=== PATIENT | female | born 1985 | race Caucasian/White ===

== ENCOUNTER → 2017-07-28 | Emergency (ER) | payer OTHER ==
[~2017-07-28] VITALS: Ht 154.9 cm; Wt 44.5 kg
[~2017-07-28] MED LIST: ORTHO TRI-CYCL1 EAC1
== END | disposition home or self-care (01) ==
LOC: ER 20:14
DX: N39.0 Urinary tract infection, site not specified (principal); R10.2 Pelvic and perineal pain

== ENCOUNTER 2020-09-08 08:28 | Outpatient (CLI) | payer OTHER | END 2020-09-08 08:57 | disposition home or self-care (01) | LOC: MAMO-SONO 08:28 | PROVIDERS: ATTEND Obstetrics & Gynecology | DX: Z12.31 Encounter for screening mammogram for malignant neoplasm of breast (principal); N60.11 Diffuse cystic mastopathy of right breast; N60.12 Diffuse cystic mastopathy of left breast; Z80.3 Family history of malignant neoplasm of breast ==

== ENCOUNTER 2024-02-16 08:20 | Outpatient (CLI) | payer OTHER | END 2024-02-16 08:21 | disposition home or self-care (01) | LOC: PRENATAL 08:20 | PROVIDERS: ATTEND Obstetrics & Gynecology Maternal & Fetal Medicine | DX: O36.80X0 Pregnancy with inconclusive fetal viability, not applicable or unspecified (principal); O26.859 Spotting complicating pregnancy, unspecified trimester; O09.529 Supervision of elderly multigravida, unspecified trimester; Z3A.01 Less than 8 weeks gestation of pregnancy ==

== ENCOUNTER 2025-03-31 14:30 | Inpatient (IN) | payer OTHER ==
[~2025-03-31] VITALS: Ht 154.9 cm; Wt 4.1 kg
[2025-04-11] MEDS ORDERED: PRENATABS RX T1 EACH PO (11:28)
[2025-04-11 12:01] LABS: BASO % 0.5 % (0.1-1.2); EOS # 0.05 (0.04-0.54); EOS % 0.6 % (0.7-7.0); LYMPH # 1.36 (1.18-3.74); LYMPH % 17.4 % (19.3-53.1); MEAN PLATELET VOLUME 10.60 fl (9.4-12.4); MONO # 0.72 (0.24-0.82); MONO % 9.2 % (4.7-12.5); NEUT # 5.57 (1.56-6.13); NEUT % 71.3 % (34.0-71.1); RED CELL DISTRIBUTION WIDTH 13.4 % (11.6-14.4)
[2025-04-11 12:16] LABS: INR 0.94
[2025-04-11 12:37] LABS: ALT/SGPT 28.0 U/L (12-78); AST/SGOT 15.0 U/L (15-37); BILIRUBIN TOTAL 0.31 mg/dL (0.3-1.2); BUN CREA RATIO 17.0 (7.0-25.0); CREATININE SERUM 0.59 mg/dL (0.55-1.02); GFR 112.89; GLOBULINA 3.4 G/DL (2.4-3.5); GLUCOSE FASTING 93.0 mg/dL (65-100); OSMOLALITY SERUM 280.0 MOSM/KG (275-295)
[2025-04-13 06:34] VITALS: BP 105/68
[2025-04-13] MEDS ORDERED: CLINDAMYCIN PHOSPHATE 150 MG/ML (900mg) ONE (08:07)
[2025-04-13] MEDS ORDERED: OXYTOCIN 10 UNITS/ML VIAL ONE ×2 (08:07→14:42)
[2025-04-13] MEDS ORDERED: GENTAMICIN SULFATE 40 MG/ML VIAL ONE (08:08)
[2025-04-13] MEDS ORDERED: CITRIC ACID/SODIUM CITRATE 30 ML BLIST.PACK PO ONE (08:08)
[2025-04-13] MEDS ORDERED: ERYTHROMYCIN BASE OPHT 1GM EACH TUBE OP ONE (08:12)
[2025-04-13] MEDS ORDERED: METHYLERGONOVINE MALEATE 0.2 MG/ML AMPUL ONE ×2 (09:59→15:13)
[2025-04-13] MEDS ORDERED: OXYTOCIN 40 UNITS in RINGERS SOLUTION,LACTATED 1,000 ML IV SCH (11:45)
[2025-04-13] MEDS ORDERED: RINGERS SOLUTION,LACTATED 1,000 ML IV SCH (11:45)
[2025-04-13] MEDS ORDERED: MORPHINE SULFATE 4 MG/ML VIAL IV SCH (12:00)
[2025-04-13] MEDS ORDERED: PROMETHAZINE HCL 25 MG/ML AMPUL IM SCH (12:00)
[2025-04-13] MEDS ORDERED: KETOROLAC TROMETHAMINE 30 MG VIAL IM ONE (12:00)
[2025-04-13] MEDS ORDERED: METHYLERGONOVINE MALEATE 0.2 MG/ML AMPUL IM SCH (13:00)
[2025-04-13] MEDS ORDERED: KETOROLAC TROMETHAMINE 30 MG VIAL ONE (14:38)
[2025-04-13 15:54] LABS: BASO % 0.2 % (0.1-1.2); EOS # 0.01 (0.04-0.54); EOS % 0.1 % (0.7-7.0); LYMPH # 1.38 (1.18-3.74); LYMPH % 9.2 % (19.3-53.1); MEAN PLATELET VOLUME 10.50 fl (9.4-12.4); MONO # 1.14 (0.24-0.82); MONO % 7.6 % (4.7-12.5); NEUT # 12.38 (1.56-6.13); NEUT % 82.6 % (34.0-71.1); RED CELL DISTRIBUTION WIDTH 13.2 % (11.6-14.4)
[2025-04-13] MEDS ORDERED: GENTAMICIN SULFATE 40 MG/ML VIAL IV SCH (17:00)
[2025-04-13] MEDS ORDERED: SIMETHICONE 125 MG CAPSULE PO SCH (17:00)
[2025-04-13] MEDS ORDERED: CLINDAMYCIN PHOSPHATE 150 MG/ML (900mg) IV SCH (17:00)
[2025-04-13] MEDS ORDERED: KETOROLAC TROMETHAMINE 10 MG TABLET PO SCH (18:00)
[2025-04-13] MEDS ORDERED: CLINDAMYCIN PHOSPHATE 150 MG/ML (900mg) IV NR (20:00)
[2025-04-14 02:21] VITALS: BP 92/60
[2025-04-14 07:00] LABS: BASO % 0.5 % (0.1-1.2); EOS # 0.07 (0.04-0.54); EOS % 0.7 % (0.7-7.0); LYMPH # 0.96 (1.18-3.74); LYMPH % 10.3 % (19.3-53.1); MEAN PLATELET VOLUME 10.80 fl (9.4-12.4); MONO # 1.04 (0.24-0.82); MONO % 11.1 % (4.7-12.5); NEUT # 7.20 (1.56-6.13); NEUT % 77.1 % (34.0-71.1); RED CELL DISTRIBUTION WIDTH 13.3 % (11.6-14.4)
[2025-04-14] MEDS ORDERED: OxyCODONE HCL 5 MG TABLET (ROXICODONE) PO SCH (08:00)
[2025-04-14 08:15] VITALS: BP 97/54; O2SAT 99
[2025-04-14 14:12] VITALS: BP 95/60
[2025-04-14 17:17] VITALS: BP 100/64
[2025-04-15 01:35] VITALS: BP 95/61
[2025-04-15] MEDS ORDERED: KETO10TA2 PO (07:32)
[2025-04-15] MEDS ORDERED: OXYCODONE HCL5 MG PO (07:32)
[2025-04-15 08:20] VITALS: BP 92/57
== END 2025-04-15 13:37 | disposition home or self-care (01) | DRG 788 ==
LOC: OB/GYN 04-11 14:30 → O/R 04-13 06:03 → OB/GYN 04-13 11:05
PROVIDERS: ADMIT Obstetrics & Gynecology Maternal & Fetal Medicine; ATTEND Obstetrics & Gynecology Maternal & Fetal Medicine
PROC: 4A1HXCZ Monitoring of Products of Conception, Cardiac Rate, External Approach (ICD-10-PCS; 2025-04-13)
PROC: 10D00Z1 Extraction of Products of Conception, Low, Open Approach (ICD-10-PCS; principal; 2025-04-13 10:45)
DX: O36.63X0 Maternal care for excessive fetal growth, third trimester, not applicable or unspecified (principal); O32.1XX0 Maternal care for breech presentation, not applicable or unspecified; O40.3XX0 Polyhydramnios, third trimester, not applicable or unspecified; Z3A.39 39 weeks gestation of pregnancy; Z37.0 Single live birth